=== PATIENT | female | born 1940 | race African-American/Black ===

== ENCOUNTER 2016-07-17 14:35 | Emergency (ER) | payer OTHER, MEDICARE ==
[2016-07-17] MEDS ORDERED: ACETAMINOPHEN 325 MG TABLET PO ONE (14:49)
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
[2016-07-17 18:54] VITALS: BP 157/65
== END 2016-07-17 18:54 | disposition home or self-care (01) ==
LOC: ER 14:35
DX: S90.31XA Contusion of right foot, initial encounter (principal); M79.671 Pain in right foot; V49.40XA Driver injured in collision with unspecified motor vehicles in traffic accident, initial encounter; I10 Essential (primary) hypertension; J45.909 Unspecified asthma, uncomplicated; E11.9 Type 2 diabetes mellitus without complications; Z86.73 Personal history of transient ischemic attack (TIA), and cerebral infarction without residual deficits
CPT/HCPCS: 99283